=== PATIENT | male | born 1955 | race Caucasian/White ===

== ENCOUNTER → 2016-09-22 | Outpatient (CLI) | payer BC ==
[~2016-09-22] MED LIST: ADDERALL10 MG PO; ADDERALL15 MG PO; ASPIRIN 32325 MG/TAB PO; DESYREL 100MG100 MG PO; HYDRODIURIL50 MG PO; LIPITOR20 MG PO; MEDROL 4MG DOSPA4 MG PO; NORCO 325 MG-51 TAB PO; NORVASC 5MG5 MG/TAB PO; PERCOCET 325 MG1 TA3 PO; PREDNISONE20 MG PO; PRINIVIL20 MG PO; PRINIVIL40 MG PO; VICODIN 5/5001 UDTAB PO; ZITHROMAX 250M250 MG PO
== END ==
LOC: BHSO 09:00
DX: F90.0 Attention-deficit hyperactivity disorder, predominantly inattentive type (principal)

== ENCOUNTER → 2016-11-14 | Outpatient (CLI) | payer BC | LOC: BHSO 08:21 | DX: F90.0 Attention-deficit hyperactivity disorder, predominantly inattentive type (principal) ==

== ENCOUNTER → 2016-12-01 | Outpatient (CLI) | payer BC | LOC: BHSO 08:41 | DX: F90.0 Attention-deficit hyperactivity disorder, predominantly inattentive type (principal) ==

== ENCOUNTER → 2016-12-29 | Outpatient (CLI) | payer BC | LOC: BHSO 08:01 | DX: F90.0 Attention-deficit hyperactivity disorder, predominantly inattentive type (principal) ==

== ENCOUNTER → 2017-05-01 | Outpatient (CLI) | payer BC | LOC: BHSO 08:05 | DX: F90.0 Attention-deficit hyperactivity disorder, predominantly inattentive type (principal) ==

== ENCOUNTER 2017-05-02 23:01 | Emergency (ER) | payer BC ==
[~2017-05-02] VITALS: Ht 172.7 cm; Wt 95.5 kg
[~2017-05-02 23:01] MED LIST changes: -ADDERALL15 MG PO; -DESYREL 100MG100 MG PO; -LIPITOR20 MG PO; -NORCO 325 MG-51 TAB PO; -PRINIVIL40 MG PO
[2017-05-02 23:03] VITALS: BP 172/107; PULSE 85; TEMP 97.2
[2017-05-02] MEDS ORDERED: PRINIVIL40 MG PO (23:30)
[2017-05-02] MEDS ORDERED: DESYREL 100MG100 MG PO (23:30)
[2017-05-02] MEDS ORDERED: LIPITOR20 MG PO (23:30)
[2017-05-02] MEDS ORDERED: ADDERALL15 MG PO (23:30)
[2017-05-03] MEDS ORDERED: NORCO 325 MG-51 TAB PO (00:21)
== END 2017-05-03 00:42 | disposition home or self-care (01) ==
LOC: COL.ER 23:01
DX: S43.402A Unspecified sprain of left shoulder joint, initial encounter (principal); Y04.0XXA Assault by unarmed brawl or fight, initial encounter; Y92.89 Other specified places as the place of occurrence of the external cause
CPT/HCPCS: J1885

== ENCOUNTER 2017-05-07 22:54 | Emergency (ER) | payer BC ==
[~2017-05-07] VITALS: Ht 167.6 cm; Wt 95.5 kg
[~2017-05-07 22:54] MED LIST changes: +ADDERALL15 MG PO; +DESYREL 100MG100 MG PO; +LIPITOR20 MG PO; +NORCO 325 MG-51 TAB PO; +PRINIVIL40 MG PO
[2017-05-07 22:59] VITALS: BP 168/84
[2017-05-08 00:56] VITALS: PULSE 79
== END 2017-05-08 00:55 | disposition home or self-care (01) ==
LOC: COL.ER 22:54
DX: S46.012A Strain of muscle(s) and tendon(s) of the rotator cuff of left shoulder, initial encounter (principal); I10 Essential (primary) hypertension; F90.9 Attention-deficit hyperactivity disorder, unspecified type
CPT/HCPCS: J1170; J2405

== ENCOUNTER → 2017-07-30 | Outpatient (CLI) | payer BC | LOC: BHSO 08:07 | DX: F90.0 Attention-deficit hyperactivity disorder, predominantly inattentive type (principal) ==

== ENCOUNTER → 2017-09-04 | Outpatient (CLI) | payer BC | LOC: BHSO 11:18 | DX: F33.1 Major depressive disorder, recurrent, moderate (principal) ==

== ENCOUNTER → 2018-02-14 | Outpatient (REF) | LOC: ZLAB.WCH 14:25 | DX: Z01.89 Encounter for other specified special examinations (principal) ==

== ENCOUNTER → 2018-10-15 | Outpatient (REF) | LOC: ZLAB.WCH 20:11 | DX: Z01.89 Encounter for other specified special examinations (principal) ==

== ENCOUNTER → 2020-01-20 | Outpatient (CLI) | payer BC | LOC: BHSO 11:00 | DX: F33.1 Major depressive disorder, recurrent, moderate (principal) | CPT/HCPCS: G0463 ==

== ENCOUNTER → 2020-02-02 | Outpatient (CLI) | payer BC | LOC: BHSO 10:01 | DX: F33.0 Major depressive disorder, recurrent, mild (principal) ==

== ENCOUNTER → 2020-02-23 | Outpatient (CLI) | payer BC | LOC: BHSO 08:17 | DX: F33.1 Major depressive disorder, recurrent, moderate (principal) | CPT/HCPCS: G0463 ==

== ENCOUNTER → 2020-04-07 | Outpatient (CLI) | payer BC | LOC: BHSO 08:01 | DX: F33.41 Major depressive disorder, recurrent, in partial remission (principal) | CPT/HCPCS: G0463 ==

== ENCOUNTER → 2020-06-09 | Outpatient (CLI) | payer BC | LOC: BHSO 08:01 | DX: F33.41 Major depressive disorder, recurrent, in partial remission (principal) | CPT/HCPCS: G0463 ==

== ENCOUNTER 2020-11-04 22:11 | Inpatient (IN) | payer MEDICARE ==
[~2020-11-04] VITALS: Ht 167.6 cm; Wt 119.6 kg
[2020-11-04 23:05] LABS: BASO # 0.1 (0.0-0.2); BASO % 0.6 % (0.0-2.0); EOS # 0.2 (0.0-0.7); EOS % 1.6 % (0-4.0); GRAN % 61.5 % (42.2-75.2); HEMATOCRIT 42.8 % (42.0-52.0); LYMPH # 2.7 (1.2-3.4); LYMPH % 23.5 % (20.0-51.0); MEAN CELL VOLUME 83 fl (80.0-100.0); MEAN CORPUSCULAR HEMOGLOBIN 27 pg (27.0-31.0); MEAN CORPUSCULAR HGB CONC 33 g/dl (33.0-37.0); MEAN PLATELET VOLUME 10.2 fl (7.4-10.4); MONO # 1.3 (0.1-0.6); MONO % 11.7 % (1.7-9.3); PLATELET COUNT 249 K/mm3 (130-400); RED BLOOD COUNT 5.15 M/mm3 (4.20-5.60)
[2020-11-04 23:07] LABS: INR 1.2 (0.8-3.0); PROTHROMBIN TIME 13.7 SECONDS (9.7-12.8)
[2020-11-04 23:11] LABS: ALANINE AMINOTRANSFERASE 44 U/L (4-49); ALBUMIN 4.3 gm/dL (3.5-5.0); ALKALINE PHOSPHATASE 61 U/L (50-136); ANION GAP 8 mmol/L (7-16); AST,SGOT 56 U/L (15-37); BILIRUBIN,TOTAL 0.5 mg/dL (0.0-1.0); BLOOD UREA NITROGEN 25 mg/dL (9-20); CALCIUM 9.4 mg/dL (8.4-10.2); CARBON DIOXIDE 27 mmol/L (22-30); CHLORIDE 102 mmol/L (98-107); CREATININE, serum 0.87 (0.66-1.25); GLUCOSE 117 mg/dL (74-106); POTASSIUM 4.4 mmol/L (3.4-5.0); SODIUM 137 mmol/L (137-145); TOTAL PROTEIN 6.9 gm/dL (6.4-8.2)
[2020-11-04 23:24] LABS: TROPONIN-I < 0.012 ng/mL (0.000-0.035)
[2020-11-04 23:34] LABS: ARTERIAL BLD GAS O2 SATURATION 98.3 % (92-100); ARTERIAL BLOOD GAS BASE EXCESS 0.6 (-2-2); ARTERIAL BLOOD GAS PCO2 34.7 mmHg (35-45); ARTERIAL BLOOD GAS PO2 109.2 mmHg (80-100); ARTERIAL BLOOD GAS pH 7.46 (7.35-7.45)
[2020-11-05] VITALS (8 sets, daily range): BP systolic 132–172; BP diastolic 53–80; PULSE 76–95; TEMP 97–98.1
[2020-11-05 01:29] LABS: COLLECTION METHOD CLEAN CATCH
[2020-11-05 01:34] LABS: PH 5 (5-8); SQUAMOUS EPITHELIAL None Seen /hpf; URINE APPEARANCE Clear; URINE BACTERIA None Seen /hpf; URINE BILIRUBIN Negative (NEGATIVE); URINE BLOOD Negative (NEGATIVE); URINE COLOR Yellow; URINE GLUCOSE Negative (NEGATIVE); URINE KETONE Negative (NEGATIVE); URINE LEUKOCYTE ESTERASE Negative (NEGATIVE); URINE NITRATE Negative (NEGATIVE); URINE PROTEIN(semi-quant) Negative (NEGATIVE); URINE RBC 0-2 /hpf; URINE UROBILINOGEN Negative (NEGATIVE)
[2020-11-05] MEDS ORDERED: MULTAQ400 MG PO (02:04)
[2020-11-05] MEDS ORDERED: ZOLOFT 100MG100 MG PO (02:04)
[2020-11-05] MEDS ORDERED: ELIQUIS 5MG PO (02:08)
[2020-11-05] MEDS ORDERED: LUNESTA2 MG PO (02:12)
[2020-11-05] MEDS ORDERED: CARDIZEM CD 12120 MG PO (02:12)
--- NOTE | 2020-11-05 02:30 | NUR ---
ARRIVES TO ROOM VIA W/C FROM ED.
[2020-11-05] MEDS ORDERED: 00186-0370-20 IH (03:06)
--- NOTE | 2020-11-05 03:20 | NUR ---
PT WAS COVID SWABBED AND RESPIRATORY VIRUS PANEL SWABBED. PT WANTS TO TAKE HIS TRAZODONE AND GO TO SLEEP. WEARING OXYGEN IN HIS MOUTH. REPORTS IT ALBA IN HIS NOSE. SL TO LEFT AC, WAS GIVEN THE ORDERED SOLUMEDROL 125NG IV DOSE ORDERED IN THE ED. PT UP IN ROOM ON HIS OWN. WILL NOT LET STAFF SEND HIS BOTTLED MEDS TO PHARMACY, MANUFACTURING QUALITY TECHNICIAN NOTIFIED.
[2020-11-05] MEDS ORDERED: ADDERALL10 MG PO (04:09)
--- NOTE | 2020-11-05 04:40 | NUR ---
Pt placed on CPAP per Verena Varela. Pt has a CPAP at home but does not wear because pressure is too high." Placed on autotitrate CPAP with 3lpm bleed in with oxygen saturation of 94%. Pt resting comfortably.
--- NOTE | 2020-11-05 06:00 | NUR ---
NEW IV SITE STARTED TO RIGHT WRIST,LEFT AC SITE POSITIONAL. IVF AND ANTIBIOTIC INFUSING WITHOUT PROBLEM.
--- NOTE | 2020-11-05 10:21 | NUR ---
AM SHIFT ASSESSMENT COMPLETE AT THIS TIME. PATIENT IS SITTING UP IN THE BEDSIDE CHAIR. PATIENT DENYING PAIN. PATIENT IS FREQUENTLY DROWSY AND FELL ASLEEP A COUPLE OF TIME DURING HIS SHIFT ASSESSMENT. PATIENT NAPPING OFF AND ON, BUT AROUSES EASILY TO STIMULI. PATIENT EDUCATED ON SPUTUM COLLECTION AND GIVEN COLLECTION CANISTER. CALL LIGHT WITHIN REACH. PATIENT DENYING ANY OTHER NEEDS AT THIS TIME.
--- NOTE | 2020-11-05 12:15 | NUR ---
DR. BATRES NOTIFIED THAT THE PATIENTS SYSTOLIC BLOOD PRESSURE HAS REMAINED IN THE LOW 170'S. IV FLUIDS DISCONTINUED. VERBAL ORDER TO CONTINUE TO MONITOR FOR NOW.
--- NOTE | 2020-11-05 13:30 | NUR ---
CALLED AND NOTIFIED THAT THE PATIENTS SYSTOLIC BLOOD PRESSURE IS UP INTO THE 180'S UPON RE-CHECK. PHYSICIAN ORDERING PRN BP MEDICAITON. WILL ADMINISTER AND CONTINUE TO MONITOR.
--- NOTE | 2020-11-05 13:53 | NUR ---
PATIENT GIVEN PRN IV HYDRALAZINE FOR ELEVATED SYSTOLIC PRESSURES. WILL RE-CHECK VITALS AND CONTINUE TO MONITOR.
--- NOTE | 2020-11-05 14:12 | NUR ---
VITALS RE-CHECK AFTER HYDRALAZINE ADMINISTRATION. BP IS NOW 165/53. WILL CONTINUE TO MONITOR.
--- NOTE | 2020-11-05 15:24 | NUR ---
Permaculture Designer met with patient to discuss discharge planning. Patient lives alone in [place] and sees Dr. Pizarro for primary care. 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 Patient obtains medications from [facility] with no difficulties. Patient does not use any DME and is independent with ADLS. Patient has DPOA-HC completed and a copy is located in EMR. DPOA-HC are patient's sister and brother in law, Heena (ph#[phone]) and Jakob (ph#[phone]). Patient plans to return home upon discharge. SW will continue to follow as needed.
--- NOTE | 2020-11-05 19:18 | NUR ---
PATIENT HAS BEEN REFUSING TO WEAR OXYGEN DURING THE SHIFT. REPORT GIVEN TO ASHLEY NOVAK.
--- NOTE | 2020-11-05 21:55 | NUR ---
Awake, alert, oriented x 3, patient non compliant with O2 use, redressed IV site for patient- IV patent, sitting up in chair, telemetry in use, denies pain, call azevedo w/i reach, ambulating in room independently with steady gait.
[2020-11-06 04:30] VITALS: BP 142/70; PULSE 84; TEMP 98.3
[2020-11-06 06:31] LABS: HEMATOCRIT 42.9 % (42.0-52.0); HEMOGLOBIN 13.3 g/dl (13.5-18.0); MEAN CELL VOLUME 85 fl (80.0-100.0); MEAN CORPUSCULAR HEMOGLOBIN 26 pg (27.0-31.0); MEAN CORPUSCULAR HGB CONC 31 g/dl (33.0-37.0); MEAN PLATELET VOLUME 10.7 fl (7.4-10.4); PLATELET COUNT 248 K/mm3 (130-400); RED BLOOD COUNT 5.03 M/mm3 (4.20-5.60); REDCELL DISTRIBUTION WIDTH-CV 14.4 % (11.5-14.5)
[2020-11-06 06:42] LABS: CALCIUM 8.9 mg/dL (8.4-10.2); CREATININE, serum 0.81 (0.66-1.25); POTASSIUM 4.5 mmol/L (3.4-5.0)
--- NOTE | 2020-11-06 06:46 | NUR ---
Call placed to MD re: critical Wbc 21.3- no answer, message left requesting call back to unit, oncoming nurse aware.
[2020-11-06 07:01] LABS: BAND 2 % (0-10); HYPOCHROMIA 1+; LYMPHOCYTE 11 % (20.0-51.0); NEUTROPHILS 81 % (42.0-75.2); PLATELET ESTIMATE NORMAL (NORMAL)
--- NOTE | 2020-11-06 07:05 | NUR ---
Sitting up in recliner with eyes open. Alert and oriented x4. Having soreness in right wrist at IV site and asks for Aspirin to take for the pain. Explain that he does not have any meds like that ordered and we would confirm with the provider on getting something ordered. Patient is suppose to be wearing oxygen but refuses to leave it on, complains that it makes his nose dry. Oxygen does have the humidifier. Patient asks if I will be giving him his Zoloft "so I don't rip your head off today". Explain that I will bring him his meds. Discuss with the patient his WBC and that he may need to stay as it is elevated. Patient will discuss this further with the provider as he wants to go home. Fresh water and Sprite zero provided. Contact TATIANA Thompson, and she will review patient chart in regards to Tylenol or aspirin order PRN pain.
--- NOTE | 2020-11-06 07:20 | NUR ---
Patient request IV site to be dc'd and started in his forearm. See interventions for documentation.
[2020-11-06 07:42] VITALS: BP 177/62; PULSE 88; TEMP 98.3
[2020-11-06 08:53] VITALS: BP 172/55
--- NOTE | 2020-11-06 08:53 | NUR ---
BP remains elevated at 172/55. Administer apresoline as prescribed. Patient sitting up in recliner watching TV. Denies additional needs.
[2020-11-06 10:02] VITALS: BP 158/55
--- NOTE | 2020-11-06 10:58 | NUR ---
PT STATES OXYGEN MAKES HIME FEEL BETTER, HOWEVER PT REQUIRES NO OXYGEN TO MAINTIAN SATS IN THE MID TO UPPER 90'S. PT DOES NOT QUALIFY FOR HOME O2.
--- NOTE | 2020-11-06 11:10 | NUR ---
Sitting up in chair watching TV. Denies needs or concerns at this time.
--- NOTE | 2020-11-06 11:40 | NUR ---
SW spoke with patient's RN regarding status. Patient will not discharge today 11/06 due to elevated white cell count. Social work will continue to follow.
--- NOTE | 2020-11-06 11:49 | NUR ---
Tele calls and says that the patient is not showing up. Go in room and tele box sitting on table. Patient says that he took it off bc he didn't want it on anymore. Explain that orders have not been placed for him to discharge. Explain that I would call TATIANA Virgen, to see if we could leave him off tele. Spoke with TATIANA Virgen, and she says that we can leave patient off tele and she is going to talk with Dr. Sanchez to see about discharge or if they will need to keep patient another night. Patient informed.
[2020-11-06] MEDS ORDERED: DOXYCYCLINE 10100 MG PO (11:53)
[2020-11-06] MEDS ORDERED: MEDROL 4MG DOSPA4 MG PO (11:54)
[2020-11-06] MEDS ORDERED: PROAIR HFA0.09 MG/AC IH (11:55)
[2020-11-06 12:00] VITALS: BP 156/50; PULSE 93; TEMP 97.7
--- NOTE | 2020-11-06 12:16 | NUR ---
Contacted Eulogio in pharmacy to have patient home medications brought up as patient is discharging.
--- NOTE | 2020-11-06 12:33 | NUR ---
Provide patient medications back to the patient, paperwork signed. Review all discharge instructions with the patient. Denies questions, verbalizes understanding and signs all discharge paperwork. Patient assisted out to POV by this nurse with all belongings.
== END 2020-11-06 12:33 | disposition home or self-care (01) | DRG 189 ==
LOC: COL.ER 22:11 → SURG 11-05 01:25
PROVIDERS: Emergency Medicine; Student in an Organized Health Care Education/Training Program; ADMIT Internal Medicine
DX: J96.01 Acute respiratory failure with hypoxia (principal); J44.1 Chronic obstructive pulmonary disease with (acute) exacerbation; D72.829 Elevated white blood cell count, unspecified; I10 Essential (primary) hypertension; F98.8 Other specified behavioral and emotional disorders with onset usually occurring in childhood and adolescence; F32.9 Major depressive disorder, single episode, unspecified; F41.9 Anxiety disorder, unspecified; I48.91 Unspecified atrial fibrillation; G47.33 Obstructive sleep apnea (adult) (pediatric); Z20.822 Contact with and (suspected) exposure to COVID-19
CPT/HCPCS: 99222-AI; 99239; A9284; J0360; J2060; J2920; J2930; J7030; Q9967

== ENCOUNTER 2021-12-07 08:31 | Inpatient (IN) | payer MEDICARE ==
[~2021-12-07] VITALS: Ht 165.1 cm; Wt 118.7 kg
[~2021-12-07 08:31] MED LIST changes: +00186-0370-20 IH; +CARDIZEM CD 12120 MG PO; +DOXYCYCLINE 10100 MG PO; +ELIQUIS 5MG PO; +LUNESTA2 MG PO; +MULTAQ400 MG PO; +PROAIR HFA0.09 MG/AC IH; +ZOLOFT 100MG100 MG PO
[2022-02-09] VITALS (13 sets, daily range): BP systolic 138–197; BP diastolic 57–82; PULSE 69–83; TEMP 96.6–98.1
[2022-02-09] MEDS ORDERED: PRINIVIL40 MG PO (07:52)
[2022-02-09] MEDS ORDERED: MULTAQ400 MG PO (07:53)
[2022-02-09] MEDS ORDERED: ELIQUIS 5MG PO (07:53)
[2022-02-09] MEDS ORDERED: DESYREL 100MG100 MG PO (07:54)
[2022-02-09] MEDS ORDERED: LIPITOR20 MG PO (07:55)
[2022-02-09] MEDS ORDERED: CARDIZEM CD 24240 MG PO (07:55)
[2022-02-09] MEDS ORDERED: ZOLOFT 100MG100 MG PO (07:55)
--- NOTE | 2022-02-09 10:39 | NUR ---
PT ARRIVED FROM PACU @ 0945, WAS A&O X3, SLEEPING @ THIS TIME. PT SNORES WITH BRIEF PERIODS OF APNEA SEEN, O2 ON VIA NC @ 3L. AGAPITO WRAP ET ICE PACK IN PLACE TO RIGHT KNEE.
--- NOTE | 2022-02-09 11:05 | NUR ---
LAB CALLED CONCERNING VANCO TROUGH ET NO RESULTS. BLOOD WAS DRAWN FROM PICC LINE ET SENT TO LAB @ 0106.
--- NOTE | 2022-02-09 11:26 | NUR ---
PT SLEEPING, AROUSES TO SHAKING, SNORES LOUDLY. OXYGEN ON @ 3L NC. PT MOVES LEGS BUT STATES THAT HE DOESN'T FEEL THEM ET THAT HE CANNOT MOVE HIS TOES. PT IS DIAPHORETIC ET COOL TO THE TOUCH, RED. BLANKETS TAKEN OFF ET PT IS GIVEN COOL WET CLOTH.
[2022-02-09 12:02] LABS: HEMATOCRIT 41.7 % (42.0-52.0); HEMOGLOBIN 13.2 g/dl (13.5-18.0); MEAN CELL VOLUME 83 fl (80.0-100.0); MEAN CORPUSCULAR HEMOGLOBIN 26 pg (27-31); MEAN CORPUSCULAR HGB CONC 32 g/dl (33.0-37.0); MEAN PLATELET VOLUME 9.7 fl (7.4-10.4); PLATELET COUNT 241 K/mm3 (130-400); RED BLOOD COUNT 5.01 M/mm3 (4.20-5.60); REDCELL DISTRIBUTION WIDTH-CV 14.6 % (11.5-14.5)
[2022-02-09 12:09] LABS: ALBUMIN 3.9 gm/dL (3.4-4.8); BILIRUBIN,TOTAL 0.2 mg/dL (0.2-1.2); CALCIUM 8.7 mg/dL (8.4-10.2); CREATININE, serum 1.25 mg/dL (0.72-1.25); POTASSIUM 5.5 mmol/L (3.5-4.5)
[2022-02-09 12:46] LABS: LYMPHOCYTE 23 % (20.0-51.0); METAMYELOCYTE 3 % (0-0); NEUTROPHILS 70 % (42.0-75.2)
[2022-02-09 12:48] LABS: HYPOCHROMIA 2+; PLATELET ESTIMATE NORMAL (NORMAL)
--- NOTE | 2022-02-09 12:59 | NUR ---
PT A&O X3 @ THIS TIME, HAS BEEN DRINKING WATER WITH NO PROBLEMS, DENIES NAUSEA. PT MOVES TOES ON BILATERAL FEET ET STATES THAT THEY ARE FEELING TINGLY. POST OP IVF INFUSING. PT IS COOPERATIVE ET PLEASANT, INSTRUCTED ON HOW TO ORDER LUNCH, DENIES NEEDS. CALL LIGHT WITHIN REACH.
[2022-02-09] MEDS ORDERED: ROXICODONE 55 MG/TAB PO (14:54)
[2022-02-09] MEDS ORDERED: TYLENOL 500MG500 MG PO (14:54)
--- NOTE | 2022-02-09 17:27 | NUR ---
PT SITTING IN CHAIR, WATCHING TV QUIETLY. PT HAS AMBULATED SHORT DISTANCES IN ROOM WITH NO PROBLEMS, TOLERATES WELL, ONLY REQUIRES SBA WITH GAIT BELT ET WALKER, USES URINAL. CRYOCUFF IN PLACE. PT FREQUENTLY SLEEPS BUT AWAKENS EASILY.
--- NOTE | 2022-02-09 21:33 | NUR ---
ASSESSMENT COMPLETE. PT. SITTING UP IN CHAIR. A&O. PAIN A 5/10 AFTER JEN GIVEN. RLE WRAPPED IN AN AGAPITO WRAP. PT. REFUSED THE TECHNOL BRACE STATING HE CAN KEEP HIS LEG STRAIGHT. INT TO LEFT HAND PATENT. SUPERFICIAL CUT ON THE RIGHT SIDE OF THE FACE FROM SHAVING. CALL LIGHT IN REACH. NO FURHTER NEEDS AT THIS TIME.
[2022-02-10] VITALS (7 sets, daily range): BP systolic 119–172; BP diastolic 50–70; PULSE 64–72; TEMP 97.3–97.9
--- NOTE | 2022-02-10 01:30 | NUR ---
TECHNOL BRACE APPLIED.
[2022-02-10 06:45] LABS: HEMOGLOBIN 11.8 g/dl (13.5-18.0); MEAN CELL VOLUME 84 fl (80.0-100.0); MEAN CORPUSCULAR HEMOGLOBIN 26 pg (27-31); MEAN CORPUSCULAR HGB CONC 31 g/dl (33.0-37.0); MEAN PLATELET VOLUME 10.4 fl (7.4-10.4); PLATELET COUNT 242 K/mm3 (130-400); REDCELL DISTRIBUTION WIDTH-CV 14.6 % (11.5-14.5)
[2022-02-10 06:59] LABS: CALCIUM 8.4 mg/dL (8.4-10.2); CREATININE, serum 0.95 mg/dL (0.72-1.25); POTASSIUM 4.6 mmol/L (3.5-4.5)
[2022-02-10 07:49] LABS: PATHOLOGY DIFF REVIEW OK
[2022-02-10 08:12] LABS: BAND 5 % (0-10); LYMPHOCYTE 13 % (20.0-51.0); NEUTROPHILS 70 % (42.0-75.2)
[2022-02-10 08:13] LABS: MICROCYTOSIS 1+; PLATELET ESTIMATE NORMAL (NORMAL)
[2022-02-10] MEDS ORDERED: GLUCOPHAGE500 MG/TAB PO (08:54)
--- NOTE | 2022-02-10 11:29 | NUR ---
Patient alert and oriented x3. VSS. Patient here for right total knee. Patient complains of pain 9/10. Patient states he would like to speak to provider and request more frequent medication. Patient on CIWA protocol scores this shift have been 4 and latest is 2. Assessment performed. AM meds administered. 3L O2 per nasal cannula. Patient voiding. IV to left hand, INT and flushes well. Call light within reach.
--- NOTE | 2022-02-10 11:47 | NUR ---
Maddi: No Buddhist Preference Situation: Lap Cutter went to room on rounds Background: PT was in pain and asking for pain meds. Nurse came and visited and is going to give pain meds that are prescribed Assessment: PT appreciated visit Recommendation: Lap Cutter will follow up as needed
--- NOTE | 2022-02-10 14:21 | NUR ---
SW met with the patient to discuss discharge plan. The patient lives alone in [place]. He reports independence with ADLs and has a FWW. The patient's PCP is Dr. Olu Pizarro and he receives his medications from [facility]. The patient's DPOA-HC is in EMR and it designates his sister, Heena Abdi (ph#[phone]), and [id number], Jakob Abdi (ph#[phone]). The patient plans to return home with outpatient PT at [facility] upon discharge. An exercise oximetry was ordered today. RT notified SW that the patient did not qualify for oxygen. No additional needs at this time. *Discharge plan: home with outpatient PT*
--- NOTE | 2022-02-10 20:00 | NUR ---
Pt. sitting up in chair. Pt. is A&OX3, assessment complete. INT to lt. hand patent. Pt. reports pain at a 7 on pain scale, giving pain meds per orders. Dressing to rt. knee CDI. Pt. denies further needs, call light within reach.
[2022-02-11 04:19] VITALS: BP 105/58; PULSE 67; TEMP 97.6
[2022-02-11 06:20] LABS: MEAN CELL VOLUME 85 fl (80.0-100.0); MEAN CORPUSCULAR HEMOGLOBIN 26 pg (27-31); MEAN CORPUSCULAR HGB CONC 31 g/dl (33.0-37.0); MEAN PLATELET VOLUME 10.5 fl (7.4-10.4); PLATELET COUNT 200 K/mm3 (130-400); REDCELL DISTRIBUTION WIDTH-CV 14.6 % (11.5-14.5)
[2022-02-11 06:23] LABS: HEMATOCRIT 32.1 % (42.0-52.0)
[2022-02-11 06:34] LABS: CREATININE, serum 2.65 mg/dL (0.72-1.25); POTASSIUM 4.1 mmol/L (3.5-4.5)
[2022-02-11 07:06] LABS: BAND 4 % (0-10); EOSINOPHIL 2 % (0-4); LYMPHOCYTE 12 % (20.0-51.0); METAMYELOCYTE 1 % (0-0); NEUTROPHILS 73 % (42.0-75.2); PLATELET ESTIMATE NORMAL (NORMAL)
--- NOTE | 2022-02-11 10:36 | NUR ---
PATIENT ALERT AND ORIENTED X3. VSS. PATIENT HERE FOR RIGHT TOTAL KNEE. ICE PACK APPLIED. PATIENT REPORTS PAIN 4/10. ICE PACK APPLIED TO SURGICAL SITE. AQUACELL WITH MINIMAL DRAINAGE. NO INCREASED SWELLING. PATIENT ON 2L O2 BUT NON-COMPLIANT IN WEARING NASAL CANNULA. ASSESSMENT PERFORMED. AM MEDS ADMINISTERED. PATIENT IN CHAIR WITH CALL LIGHT NEAR.
[2022-02-11 12:20] VITALS: BP 108/63; PULSE 59; TEMP 97.5
--- NOTE | 2022-02-11 16:27 | NUR ---
DISCHARGE INSTRUCTIONS PROVIDED. PATIENT EDUCATION GIVEN. IV DC'D. FOLLOW UP APPOINTMENTS DISCUSSED. PATIENT DENIED ANY QUESTIONS OR CONCERNS. PATIENT ESCORTED OUT VIA WHEELCHAIR.
== END 2022-02-11 15:45 | disposition home or self-care (01) | DRG 470 ==
LOC: INPTSU 02-09 06:33 → SURG 02-09 07:30
PROVIDERS: Physician Assistant; Student in an Organized Health Care Education/Training Program; ADMIT Orthopaedic Surgery
PROC: 0SRC0J9 Replacement of Right Knee Joint with Synthetic Substitute, Cemented, Open Approach (ICD-10-PCS; principal; 2022-02-10)
DX: M17.11 Unilateral primary osteoarthritis, right knee (principal); I10 Essential (primary) hypertension; I48.91 Unspecified atrial fibrillation; G47.33 Obstructive sleep apnea (adult) (pediatric); J44.9 Chronic obstructive pulmonary disease, unspecified; F32.A Depression, unspecified; F41.9 Anxiety disorder, unspecified; F90.9 Attention-deficit hyperactivity disorder, unspecified type; E87.5 Hyperkalemia; E78.5 Hyperlipidemia, unspecified; E11.65 Type 2 diabetes mellitus with hyperglycemia; R09.02 Hypoxemia; M65.332 Trigger finger, left middle finger; M65.322 Trigger finger, left index finger; D64.9 Anemia, unspecified; D72.829 Elevated white blood cell count, unspecified; G47.00 Insomnia, unspecified; Z72.89 Other problems related to lifestyle; Z79.01 Long term (current) use of anticoagulants; Z88.8 Allergy status to other drugs, medicaments and biological substances; Z91.018 Allergy to other foods; Z23 Encounter for immunization
CPT/HCPCS: 99222; 99231-AI; 99232-AI; A9284; C1713; C1776; J0690; J1815; J1885; J2250; J2270; J2405; J2704; J2765; J3370; J7030; J7120; L1830

== ENCOUNTER 2022-03-09 05:26 | Day surgery (SDC) | payer MEDICARE ==
[~2022-03-09] VITALS: Ht 165.1 cm; Wt 121.5 kg
[~2022-03-09 05:26] MED LIST changes: +CARDIZEM CD 24240 MG PO; +GLUCOPHAGE500 MG/TAB PO; +ROXICODONE 55 MG/TAB PO; +TYLENOL 500MG500 MG PO
[2022-03-09 07:45] VITALS: BP 98/59; PULSE 96; TEMP 97.4
--- NOTE | 2022-03-09 07:45 | NUR ---
PT TO [place] 8 PER CART FROM PACU. RECEIVED REPORT. VS OBTAINED. PT TOLERATING ICE CHIPS WITHOUT DIFFICULTY. PT DENIES ANY ADDITIONAL NEEDS AT THIS TIME.
[2022-03-09 08:00] VITALS: BP 116/50; PULSE 69
[2022-03-09 08:15] VITALS: BP 118/53; PULSE 64
[2022-03-09 08:30] VITALS: BP 104/48; PULSE 64
--- NOTE | 2022-03-09 08:30 | NUR ---
PT DENIES ANY NEEDS THIS TIME. TOLERATING SPRITE AND MUFFINS.
[2022-03-09 09:00] VITALS: BP 112/51; PULSE 65
--- NOTE | 2022-03-09 09:05 | NUR ---
IV DC'D AT THIS TIME. PT TOLERATED WELL.
--- NOTE | 2022-03-09 09:20 | NUR ---
DISCHARGE EDUCATION COMPLETED WITH PT. VERBALIZED UNDERSTANDING OF HOME AND FOLLOW UP CARE. ALL QUESTIONS ANSWERED. DISCHARGE PAPERWORK GIVEN TO PT.
--- NOTE | 2022-03-09 09:35 | NUR ---
PT OFF UNIT PER WHEELCHAIR. DISCHARGED TO HOME WITH FRIEND PER PERSONAL VEHICLE.
[2022-03-09 10:14] VITALS: BP 163/63; PULSE 72; TEMP 97.9
== END 2022-03-09 09:35 | disposition home or self-care (01) ==
LOC: SDCO 05:26
DX: M65.322 Trigger finger, left index finger (principal); M65.332 Trigger finger, left middle finger; M65.342 Trigger finger, left ring finger; M65.352 Trigger finger, left little finger; E10.8 Type 1 diabetes mellitus with unspecified complications; Z79.82 Long term (current) use of aspirin; Z79.01 Long term (current) use of anticoagulants
CPT/HCPCS: J0690; J2250; J2704

== ENCOUNTER → 2022-12-26 | Outpatient (CLI) | payer MEDICARE ==
[~2022-12-26] MED LIST changes: +CEPHALEXIN500 M1 PO
== END ==
LOC: COL.VAS 13:15
DX: R06.02 Shortness of breath (principal)